=== PATIENT | female | born 2000 | race Caucasian/White ===

== ENCOUNTER 2020-05-12 10:12 | Inpatient (IN) | payer OTHER ==
[2020-05-12] VITALS (7 sets, daily range): BP systolic 97–114; BP diastolic 48–64
[~2020-05-12] VITALS: Ht 170.2 cm; Wt 86.1 kg
[2020-05-12 10:54] LABS: ABSOLUTE EOSINOPHILS 0.2 thou/uL (0.0-0.7); ABSOLUTE LYMPHOCYTES 1.9 thou/uL (0.8-5.3); ABSOLUTE MONOCYTES 0.8 thou/uL (0.0-1.2); ABSOLUTE NEUTROPHILS 6.1 thou/uL (1.6-8.1); BASOPHILS 0.5 %; HEMATOCRIT 34.5 % (37.0-47.0); HEMOGLOBIN 12.1 gm/dL (12.0-15.0); LYMPHOCYTES 20.6 %; MCH 30.1 pg (26.0-34.0); MCHC 35.1 g/dL (28.0-37.0); MCV 85.9 fL (80.0-100.0); MPV 8.4 fl. (7.2-11.1); NUCLEATED RBCS 0 /100WBC; PLATELET COUNT* 191 thou/uL (150-400); POLYS 67.9 %; RBC 4.01 mil/uL (4.20-5.00); RDW-CV 12.1 % (10.5-14.5)
[2020-05-12 11:03] LABS: CALCIUM 8.5 mg/dL (8.5-10.1); CREATININE 0.7 mg/dL (0.6-1.3); POTASSIUM 3.9 mmol/L (3.5-5.1)
[2020-05-12 11:05] LABS: APTT 28.9 Seconds (25.0-31.3); INR 1.1; PROTIME 11.2 Seconds (9.20-11.50)
[2020-05-12 11:14] LABS: ALBUMIN 3.3 g/dL (3.4-5.0); MAGNESIUM 1.8 mg/dL (1.8-2.4); TOTAL BILIRUBIN 0.3 mg/dL (<0.1-1.0); TOTAL PROTEIN 7.2 g/dL (6.4-8.2)
--- NOTE | 2020-05-12 16:14 | 2DMMODE ---
[place] [address] 2 D/M-MODE ECHOCARDIOGRAM Name: GRACIE SHORT Room: [address] IN [place]#: [id number] Admission: 05/12/20 Attend Phys: Ronen Welch, Discharge: Date of : 89 Date of Service: 05/12/20 1613 Report #: [id number] THIS REPORT FOR: cc: FAM - No family physician/PCP FAM - No family physician/PCP Matt Perez MD [facility] ~ APPROVED REPORT Study performed: 05/12/2020 14:01:31 EXAM: Comprehensive 2D, Doppler, and color-flow Echocardiogram Patient Location: In-Patient Room #: er Status: routine BSA: 1.89 HR: 65 bpm BP: 97/47 mmHg Rhythm: NSR Other Information Study Quality: Good Indications Chest Pain 2D Dimensions IVSd: 9.85 (7-11mm) LVOT Diam: 18.83 (18-24mm) LVDd: 41.90 mm PWd: 8.11 (7-11mm) Ascending Ao: 24.50 (22-36mm) LVDs: 30.75 (25-40mm) Aortic Root: 23.52 mm Volumes Left Atrial Volume (Systole) LA ESV Index: 25.10 mL/m2 Aortic Valve AoV Peak Low.: 1.12 m/s AO Peak Gr.: 5.06 mmHg LVOT Max P.78 mmHg AO Mean Gr.: 3.17 mmHg LVOT Mean P.95 mmHg LVOT Max V: 1.09 m/s AO V2 VTI: 24.56 cm LVOT Mean V: 0.62 m/s JUNI (VTI): 2.49 cm2 LVOT V1 VTI: 21.93 [place] [address] 2 D/M-MODE ECHOCARDIOGRAM Name: GRACIE SHORT Room: [address] IN [facility]#: [id number] Admission: 05/12/20 Attend Phys: Ronen Welch, Discharge: Date of : 89 Date of Service: 05/12/20 1613 Report #: [id number] Mitral Valve E/A Ratio: 2.53 MV Decel. Time: 200.98 ms MV E Max Low.: 0.90 m/s MV PHT: 58.28 ms MVA (PHT): 3.77 cm2 TDI E/Lateral E': 5.00 E/Medial E': 6.43 Medial E' Low.: 0.14 m/s Lateral E' Low.: 0.18 m/s Pulmonary Valve PV Peak Low.: 1.19 m/s PV Peak Gr.: 5.68 mmHg Tricuspid Valve RAP Estimate: 5.00 mmHg TR Peak Gr.: 20.52 mmHg RVSP: 25.00 mmHg PA Pressure: 25.00 mmHg Left Ventricle The left ventricle is normal size. There is global hypokinesis of the left ventricle. There is normal left ventricular wall thickness. Left ventricular systolic function is borderline. LVEF is 45-50%. The left ventricular diastolic function is normal. Right Ventricle The right ventricle is normal size. The right ventricular systolic function is normal. Atria The left atrium size is normal. The right atrium size is normal. Aortic Valve The aortic valve is normal in structure. No aortic regurgitation is present. There is no aortic valvular stenosis. Mitral Valve The mitral valve is normal in structure. There is no mitral valve regurgitation noted. No evidence of mitral valve stenosis. Tricuspid Valve The tricuspid valve is normal in structure. Mild tricuspid regurgitation. [place] [address] 2 D/M-MODE ECHOCARDIOGRAM Name: RAMUEnrikeGRACIE Room: [address] IN [facility]#: [id number] Admission: 05/12/20 Attend Phys: Ronen Welch, Discharge: Date of : 89 Date of Service: 05/12/20 1613 Report #: [id number] Pulmonic Valve The pulmonary valve is normal in structure. Mild pulmonic regurgitation. Great Vessels The aortic root is normal in size. IVC is normal in size and collapses >50% with inspiration. Pericardium There is no pericardial effusion. <Conclusion> There is global hypokinesis of the left ventricle. LVEF is 45-50%. <ELECTRONICALLY SIGNED> By: Matt Perez MD, FACC 05/12/20 161 161 12 Matt Perez MD, FACC /INF
--- NOTE | 2020-05-12 16:26 | EKG ---
[place] [address] ELECTROCARDIOGRAM REPORT Name: OPHELIAALVAROGARCIE Cal[place] Room: [place] [address] ADM IN [facility]#: [id number] Admission: 05/12/20 Attend Phys: Ronen Welch, Discharge: Date of : 89 Date of Service: 05/12/20 1019 Report #: [id number] THIS REPORT FOR: //name// [facility] ED Test Date: 2020-05-12 Test Time: 10:19:16 Pat Name: GRACIE SHORT Department: Room: [facility] Gender: F Scrub Nurse: SNEHA : 2000 Requested By: Stefanie Yanes Order Number: [id number] MD: Matt Perez Measurements Intervals [place] Rate: 52 P: 43 [place]: 162 QRS: 62 QRSD: 65 T: 37 QT: 437 QTc: 407 Interpretive Statements Sinus bradycardia ST elev, probable normal early repol pattern No previous ECG available for comparison Electronically Signed On 05-12-2020 16:26:28 BLOOD DONOR RECRUITER SUPERVISOR by Matt Perez [email or web address] <ELECTRONICALLY SIGNED> By: Matt Perez MD, [facility] 05/12/20 1626 1019 1019 Matt Perez MD, [facility] /EPI
--- NOTE | 2020-05-12 16:33 | EKG ---
[place] [address] ELECTROCARDIOGRAM REPORT Name: DEJAGRACIE Room: [place] [address] ADM IN [facility]#: [id number] Admission: 05/12/20 Attend Phys: Ronen Welch, Discharge: Date of : 89 Date of Service: 05/12/20 1301 Report #: [id number] THIS REPORT FOR: //name// [facility] ED Test Date: 2020-05-12 Test Time: 13:01:48 Pat Name: GRACIE SHORT Department: Room: [place] [address] Gender: F Weblogic Administrator: ASMITA : 2000 Requested By: Stefanie Yanes Order Number: [id number] Reading MD: Matt Perez Measurements Intervals [place] Rate: 66 P: 57 [place]: 183 QRS: 61 QRSD: 64 T: 23 QT: 428 QTc: 449 Interpretive Statements Sinus rhythm ST elev, probable normal early repol pattern Baseline wander in lead(s) V5 Compared to ECG 05/12/2020 10:19:16 No significant changes Electronically Signed On 05-12-2020 16:32:56 COOK HELPER PRESERVES by Matt Perez [email or web address] <ELECTRONICALLY SIGNED> By: Matt Perez MD, FACC 05/12/20 1632 1301 1301 Matt Perez MD, FAC /EPI
[2020-05-13] VITALS (7 sets, daily range): BP systolic 97–109; BP diastolic 47–59
--- NOTE | 2020-05-13 14:07 | EKG ---
[place] [address] ELECTROCARDIOGRAM REPORT Name: GRACIE SHORT Room: [address] IN [facility].R.#: [id number] Admission: 05/12/20 Attend Phys: Ronen Welch, Discharge: Date of : 89 Date of Service: 05/13/20 0423 Report #: [id number] THIS REPORT FOR: //name// [facility] Test Date: 2020-05-13 Test Time: 04:23:42 Pat Name: GRACIE SHORT Department: Room: [address] Gender: F Preschool Program Director: Denys Mcdonough : 2000 Requested By: Matt Perez Order Number: [id number] MD: Bob Hernandez Measurements Intervals [place] Rate: 150 P: 42 [place]: 32 QRS: 44 QRSD: 139 T: 171 QT: 331 QTc: 523 Interpretive Statements Sinus rhythm Diffuse ST elevation, early repolarization Compared to ECG 05/12/2020 13:01:48 No significant changes noted Electronically Signed On 05-13-2020 14:07:35 PUMP OILER by Bob Hernandez [email or web address] <ELECTRONICALLY SIGNED> By: Bob Hernandez MD, FACC 05/13/20 1407 0423 0423 Bob Hernandez MD, [facility] /EPI
--- NOTE | 2020-05-13 14:33 | CON ---
[address] [address] CONSULTATION Name: GRACIE SHORT Room: [address] IN [facility].#: [id number] Admission: 05/12/20 Attend Phys: Ronen Welch MD Discharge: Date of : 89 Report #: [id number] THIS REPORT FOR: cc: FAM - No family physician/PCP FAM - No family physician/PCP ~ Matt Perez MD [facility] DATE OF SERVICE: 05/12/2020 HISTORY OF PRESENT ILLNESS: The patient is a 19-year-old single white female who I was asked to see in the Emergency Room today after she complained of chest pain. The patient has an extensive past medical history. Unfortunately, none of her old records are available here. The history is obtained from the patient as well as her mother. Apparently in 2019, she complained of palpitations. She went to [facility]. She was then sent by ambulance to [facility] on the [place]. She was told that she had SVT at 220 beats per minute. She subsequently underwent radiofrequency ablation. She has had no further palpitations since that time. She apparently had a workup that included a DARIN at that time. She currently is on no medications. She was doing well until about 3 days ago, she developed a fever and flu-like symptoms. She has been lying in bed. She has had no appetite. She does starting yesterday though, she felt a discomfort in her chest, went into her back. There is no radiation to her jaw or arms. She denied any diaphoresis or nausea. The pain was not related to food. She has had no bleeding. Denied trauma to her chest. This morning, the pain was worse, so she came to the Emergency Room for further evaluation and treatment. She denied a history of heart murmur. PAST MEDICAL HISTORY: She is G0, last menstrual period was yesterday. She has an IUD in place. She has no history of hypertension, diabetes, hyperlipidemia. MEDICATIONS: She is on no medications. ALLERGIES: She has no known drug allergies. SURGICAL HISTORY: She has no previous surgical procedure. FAMILY HISTORY: Her grandmother had a pacemaker. There is no history of sudden in the family. SOCIAL HISTORY: She is single. She went to 1 year of college. 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 Does live up here at [place]. No smoking. No alcohol abuse. No illicit drug use. She does drink Red Bull occasionally. REVIEW OF SYSTEMS: She has had no history of stroke, asthma, liver disease, kidney disease, cancer, psychiatric illness, [place] [address] CONSULTATION Name: DEJAGRACIE Room: [address] IN M.R.#: [id number] Admission: 05/12/20 Attend Phys: Ronen Welch MD Discharge: Date of : 89 Report #: [id number] PHYSICAL EXAMINATION: GENERAL: Revealed a young female, who appeared in no distress. VITAL SIGNS: She had a blood pressure of 100/60, pulse 70. She is afebrile. HEENT: She was anicteric. Conjunctivae pink. Mucous membranes are moist. NECK: Veins were not distended. CHEST: Clear to auscultation. CARDIOVASCULAR: Regular rate and rhythm. No rub, murmur or gallop. ABDOMEN: Soft. EXTREMITIES: Had no edema. Posterior tibial pulse 2+ bilaterally. SKIN: Cool and dry. NEUROLOGIC: Nonfocal. RADIOLOGICAL DATA: ECG showed a sinus rhythm. There was no significant ST or T-wave change noted. She had a portable chest x-ray in the Emergency Room that showed normal heart size, clear lung norman. LABORATORY WORK DATA: Sodium 139, creatinine 0.7, SGOT 72, SGPT 23. Her troponin on admission was 26, it is currently 32. BNP 490. Her white blood cell count 9.0, hemoglobin of 12.1. COVID antigen stat test was negative. HCG qualitative was negative. IMPRESSION AND RECOMMENDATIONS: 1. Chest pain. Suspect myocarditis. Recommend echocardiogram. 2. Elevated troponin, suspect secondary to myocarditis. I would not recommend stress testing nor cardiac catheterization at this time. 3. History of supraventricular tachycardia. No clinical recurrences follow ablation 2 years ago. 4. Recent viral illness. COVID antigen test was negative. <ELECTRONICALLY SIGNED> By: Matt Perez MD, FACC 05/13/20 1433 1325 [id number] Perez MD, FACC /nt
[2020-05-13 23:10] LABS: URINE BILIRUBIN NEGATIVE (Negative); URINE BLOOD TRACE (Negative); URINE CLARITY CLEAR; URINE COLOR YELLOW; URINE GLUCOSE-RANDOM NEGATIVE (Negative); URINE KETONES NEGATIVE (Negative); URINE LEUKOCYTES-REFLEX NEGATIVE (Negative); URINE NITRITE-REFLEX NEGATIVE (Negative); URINE PROTEIN NEGATIVE (Negative); URINE SPECIFIC GRAVITY <= 1.005 (1.005-1.030); URINE UROBILINOGEN 0.2 E.U./dl (0.2-1.0)
[2020-05-14 04:24] LABS: HEMATOCRIT 34.3 % (37.0-47.0); HEMOGLOBIN 11.7 gm/dL (12.0-15.0); MCH 29.4 pg (26.0-34.0); MCHC 34.1 g/dL (28.0-37.0); MCV 86.2 fL (80.0-100.0); MPV 8.6 fl. (7.2-11.1); RBC 3.98 mil/uL (4.20-5.00); RDW-CV 12.3 % (10.5-14.5); WBC 9.2 thou/uL (4.0-11.0)
[2020-05-14 04:50] LABS: ANION GAP 8 mmol/L (7-16); CALCIUM 8.7 mg/dL (8.5-10.1); CHLORIDE 103 mmol/L (98-107); CHOLESTEROL 122 mg/dL (<200); CO2 28 mmol/L (21-32); CREATININE 0.8 mg/dL (0.6-1.3); GLUCOSE 89 mg/dL (70-99); HDL CHOLESTEROL 24 mg/dL (>40); LDL CHOLESTEROL 82 mg/dL (<100); MAGNESIUM 2.2 mg/dL (1.8-2.4); POTASSIUM 4.1 mmol/L (3.5-5.1); SODIUM 139 mmol/L (136-145); TC:HDL 5.1 Ratio (Not establshd); TRIGLYCERIDE 80 mg/dL (<150); VLDL 16 mg/dL (<40)
[2020-05-14 04:51] VITALS: BP 96/53
[2020-05-14 04:54] LABS: SERUM ASSESSMENT CLEAR
[2020-05-14 05:24] LABS: BUN 5 mg/dL (7-18)
[2020-05-14 08:00] VITALS: BP 116/68
[2020-05-14] MEDS ORDERED: ASPIRIN325 PO (08:20)
[2020-05-14] MEDS ORDERED: COLCHICINE0.6 MG PO (08:20)
[2020-05-14] MEDS ORDERED: OMEPRAZOLE40 MG PO (08:23)
[2020-05-14 10:35] VITALS: BP 116/68
== END 2020-05-14 11:22 | disposition home or self-care (01) | DRG 314 ==
LOC: M.ERS 10:12 → M.2W 12:48 → M.TBA-ER 12:48 → M.2W 18:28
PROVIDERS: Nurse Practitioner Family; ADMIT Internal Medicine; ATTEND Internal Medicine
DX: I30.9 Acute pericarditis, unspecified (principal); I50.21 Acute systolic (congestive) heart failure; Z20.822 Contact with and (suspected) exposure to COVID-19; E88.09 Other disorders of plasma-protein metabolism, not elsewhere classified; Z79.899 Other long term (current) drug therapy; Z82.49 Family history of ischemic heart disease and other diseases of the circulatory system